=== PATIENT | female | born 1955 | race American Indian/Alaskan Native ===

== ENCOUNTER 2018-11-09 10:38 | Emergency (ER) | payer MEDICAID, MEDICARE ==
[2018-11-09] MEDS ORDERED: MORPHINE IV ONE (11:26)
[2018-11-09] MEDS ORDERED: ZOFRAN IV ONE (11:26)
[2018-11-09 11:42] LABS: Basophils # (Auto) 0.1 K/mm3 (0.0-0.1); Basophils % (Auto) 0.8 % (0.0-1.8); Eosinophils # (Auto) 0.2 K/mm3 (0.0-0.4); Eosinophils % (Auto) 1.9 % (0.0-4.3); Hematocrit 41.3 % (30.3-42.9); Hemoglobin 13.3 gm/dl (10.1-14.3); Lymphocytes # (Auto) 3.9 K/mm3 (1.2-5.4); Lymphocytes % (Auto) 34.6 % (13.4-35.0); Mean Corpuscular HGB Conc 32 % (30-34); Mean Corpuscular Volume 87 fl (79-97); Monocytes # (Auto) 0.4 K/mm3 (0.0-0.8); Monocytes % (Auto) 3.6 % (0.0-7.3); Platelet Count 282 K/mm3 (140-440); Red Blood Count 4.73 M/mm3 (3.65-5.03); Red Cell Distribution Width 14.7 % (13.2-15.2)
--- NOTE | 2018-11-09 11:42 | Emergency Department Report ---
ED General Adult HPI - General Chief complaint: Abdominal Pain Stated complaint: L FLANK PAIN Time Seen by Provider: 11/09/18 11:09 Source: patient, EMS Mode of arrival: Stretcher Limitations: No Limitations - History of Present Illness Initial comments: The patient presents to the emergency department with a chief complaint lower abdominal pain that started this morning. Patient describes the pain as sharp in nature and denies any radiation. Patient also complains of pain with urination. Patient denies chest pain, SOB, or headache. -: Sudden Location: abdomen Radiation: non-radiation Severity scale (0 -10): 7 Quality: sharp Consistency: constant Improves with: none Worsens with: none Associated Symptoms: denies other symptoms Treatments Prior to Arrival: none - Related Data Allergies Allergy/AdvReac Type Severity Reaction Status Date / Time ibuprofen [From Motrin] Allergy Rash Verified 11/09/18 11:03 ED Review of Systems ROS: Stated complaint: L FLANK PAIN Other details as noted in HPI Comment: All other systems reviewed and negative Constitutional: denies: chills, fever Eyes: denies: eye pain, eye discharge, vision change ENT: denies: ear pain, throat pain Respiratory: denies: cough, shortness of breath, wheezing Cardiovascular: denies: chest pain, palpitations Endocrine: no symptoms reported Gastrointestinal: abdominal pain. denies: nausea, diarrhea Genitourinary: denies: urgency, dysuria, discharge Musculoskeletal: denies: back pain, joint swelling, arthralgia Skin: denies: rash, lesions Neurological: denies: headache, weakness, paresthesias Psychiatric: denies: anxiety, depression Hematological/Lymphatic: denies: easy bleeding, easy bruising ED Past Medical Hx - Past Medical History Previous Medical History?: Yes Hx Hypertension: Yes Hx Diabetes: Yes Hx Arthritis: Yes Hx COPD: Yes - Social History Smoking Status: Current Every Day Smoker Substance Use Type: None ED Physical Exam - General Limitations: No Limitations General appearance: alert, in no apparent distress - Head Head exam: Present: atraumatic, normocephalic - Eye Eye exam: Present: normal appearance, PERRL, EOMI - ENT ENT exam: Present: mucous membranes moist - Neck Neck exam: Present: normal inspection - Respiratory Respiratory exam: Present: normal lung sounds bilaterally. Absent: respiratory distress - Cardiovascular Cardiovascular Exam: Present: regular rate, normal rhythm. Absent: systolic mu rmur, diastolic murmur, rubs, gallop - GI/Abdominal GI/Abdominal exam: Present: soft, tenderness (TTP lower left quadrant), normal bowel sounds. Absent: distended - Extremities Exam Extremities exam: Present: normal inspection - Back Exam Back exam: Present: normal inspection - Neurological Exam Neurological exam: Present: alert, oriented X3, CN II-XII intact. Absent: motor sensory deficit - Psychiatric Psychiatric exam: Present: normal affect, normal mood - Skin Skin exam: Present: warm, dry, intact, normal color. Absent: rash ED Course Vital Signs 11/09/18 11/09/18 11:09 11:26 Temperature 98.3 F Pulse Rate 58 L Respiratory 15 15 Rate Blood Pressure 151/77 [Left] O2 Sat by Pulse 97 Oximetry ED Medical Decision Making - Lab Data Result diagrams: 11/09/18 11:33 11/09/18 11:33 Lab Results 11/09/18 11/09/18 11/09/18 Range/Units 11:20 11:33 11:33 WBC 11.3 H (4.5-11.0) K/mm3 RBC 4.73 (3.65-5.03) M/mm3 Hgb 13.3 (10.1-14.3) gm/dl Hct 41.3 (30.3-42.9) % MCV 87 (79-97) fl MCH 28 (28-32) pg MCHC 32 (30-34) % RDW 14.7 (13.2-15.2) % Plt Count 282 (140-440) K/mm3 Lymph % (Auto) 34.6 (13.4-35.0) % [place] % (Auto) 3.6 (0.0-7.3) % Eos % (Auto) 1.9 (0.0-4.3) % Baso % (Auto) 0.8 (0.0-1.8) % Lymph # 3.9 (1.2-5.4) K/mm3 [place] # 0.4 (0.0-0.8) K/mm3 Eos # 0.2 (0.0-0.4) K/mm3 Baso # 0.1 (0.0-0.1) K/mm3 Seg Neutrophils % 59.1 (40.0-70.0) % Seg Neutrophils # 6.7 (1.8-7.7) K/mm3 PT 13.3 (12.2-14.9) Sec. INR 1.04 (0.87-1.13) APTT 23.6 L (24.2-36.6) Sec. Sodium (137-145) mmol/L Potassium (3.6-5.0) mmol/L Chloride (98-107) mmol/L Carbon Dioxide (22-30) mmol/L Anion Gap mmol/L BUN (7-17) mg/dL Creatinine (0.7-1.2) mg/dL Estimated GFR ml/min BUN/Creatinine Ratio % Glucose (65-100) mg/dL Calcium (8.4-10.2) mg/dL Total Bilirubin (0.1-1.2) mg/dL AST (5-40) units/L ALT (7-56) units/L Alkaline Phosphatase (35-129) units/L Total Protein (6.3-8.2) g/dL Albumin (3.9-5) g/dL Albumin/Globulin Ratio % Lipase (13-60) units/L Urine Color Yellow (Yellow) Urine Turbidity Slightly-cloudy (Clear) Urine pH 6.0 (5.0-7.0) Ur Specific [place] 1.020 (1.003-1.030) Urine Protein 30 mg/dl (Negative) mg/dL Urine Glucose (UA) Neg (Negative) mg/dL Urine Ketones Tr (Negative) mg/dL Urine Blood Neg (Negative) Urine Nitrite Neg (Negative) Urine Bilirubin Neg (Negative) Urine Urobilinogen 2.0 (<2.0) mg/dL Ur Leukocyte Esterase Sm (Negative) Urine WBC (Auto) 11.0 H (0.0-6.0) /HPF Urine RBC (Auto) 3.0 (0.0-6.0) /HPF U Epithel Cells (Auto) 4.0 (0-13.0) /HPF Urine Mucus 2+ /HPF 11/09/18 Range/Units 11:33 WBC (4.5-11.0) K/mm3 RBC (3.65-5.03) M/mm3 Hgb (10.1-14.3) gm/dl Hct (30.3-42.9) % MCV (79-97) fl MCH (28-32) pg MCHC (30-34) % RDW (13.2-15.2) % Plt Count (140-440) K/mm3 Lymph % (Auto) (13.4-35.0) % [place] % (Auto) (0.0-7.3) % Eos % (Auto) (0.0-4.3) % Baso % (Auto) (0.0-1.8) % Lymph # (1.2-5.4) K/mm3 [place] # (0.0-0.8) K/mm3 Eos # (0.0-0.4) K/mm3 Baso # (0.0-0.1) K/mm3 Seg Neutrophils % (40.0-70.0) % Seg Neutrophils # (1.8-7.7) K/mm3 PT (12.2-14.9) Sec. INR (0.87-1.13) APTT (24.2-36.6) Sec. Sodium 142 (137-145) mmol/L Potassium 3.3 L (3.6-5.0) mmol/L Chloride 110.3 H (98-107) mmol/L Carbon Dioxide 23 (22-30) mmol/L Anion Gap 12 mmol/L BUN 8 (7-17) mg/dL Creatinine 0.8 (0.7-1.2) mg/dL Estimated GFR > 60 ml/min BUN/Creatinine Ratio 10 % Glucose 96 (65-100) mg/dL Calcium 7.6 L (8.4-10.2) mg/dL Total Bilirubin 0.20 (0.1-1.2) mg/dL AST 13 (5-40) units/L ALT 7 (7-56) units/L Alkaline Phosphatase 85 (35-129) units/L Total Protein 6.0 L (6.3-8.2) g/dL Albumin 3.2 L (3.9-5) g/dL Albumin/Globulin Ratio 1.1 % Lipase 58 (13-60) units/L Urine Color (Yellow) Urine Turbidity (Clear) Urine pH (5.0-7.0) Ur Specific [place] (1.003-1.030) Urine Protein (Negative) mg/dL Urine Glucose (UA) (Negative) mg/dL Urine Ketones (Negative) mg/dL Urine Blood (Negative) Urine Nitrite (Negative) Urine Bilirubin (Negative) Urine Urobilinogen (<2.0) mg/dL Ur Leukocyte Esterase (Negative) Urine WBC (Auto) (0.0-6.0) /HPF Urine RBC (Auto) (0.0-6.0) /HPF U Epithel Cells (Auto) (0-13.0) /HPF Urine Mucus /HPF - Radiology Data Radiology results: report reviewed - Medical Decision Making Discussed results with patient Critical care attestation.: If time is entered above; I have spent that time in minutes in the direct care of this critically ill patient, excluding procedure time. ED Disposition Clinical Impression: Abdominal pain, UTI (urinary tract infection) Disposition: TO HOME OR SELFCARE Is pt being admited?: No Does the pt Need Aspirin: No Condition: Stable Instructions: Abdominal Pain (ED), Urinary Tract Infection in Women (ED) Additional Instructions: return if worse Referrals: [facility]IMARY CARE,MD [Primary Care Provider] - 3-5 Days [facility] [Provider Group] - 3-5 Days [facility] [Provider Group] - 3-5 Days Time of Disposition: 14:00
[2018-11-09 11:44] LABS: Bilirubin,Urine NEG (Negative); Blood,Urine NEG (Negative); Color,Urine Yellow (Yellow); Mucus,Urine 2+ /HPF
[2018-11-09 11:56] LABS: Alanine Aminotransferase 7 units/L (7-56); Albumin 3.2 g/dL (3.9-5); BUN/Creatinine Ratio 10; Blood Urea Nitrogen 8 mg/dL (7-17); Calcium 7.6 mg/dL (8.4-10.2); Hemolysis Index 43; INR 1.04 (0.87-1.13); Partial Thromboplastin Time 23.6 Sec. (24.2-36.6)
--- NOTE | 2018-11-09 13:34 | Cat Scan Report ---
CT ABDOMEN AND PELVIS WITH CONTRAST HISTORY: abdominal pain COMPARISON: None. TECHNIQUE: Axial CT images were obtained through the abdomen and pelvis after 100 cc of Omnipaque 300 intravenously. Sagittal and coronal reformatted images. All CT scans at this location are performed using CT dose reduction for ALARA by means of automated exposure control. FINDINGS: CT ABDOMEN: Lung Bases: Clear. Liver: No significant abnormality. Biliary: No significant abnormality. Spleen: No significant abnormality. Unenlarged. Pancreas: No significant abnormality. Adrenals: A 2 cm intermediate density left adrenal nodule is identified. The right adrenal gland is n ormal. Kidneys: The right kidney is within normal limits. The left kidney is atrophic measuring 7 cm in jacob th with multifocal cortical scarring. No focal renal lesion or hydronephrosis. The ureters are normal course and caliber. Lymphatics: No lymphadenopathy. Vasculature: No significant abnormality. Bowel/Peritoneum: No significant abnormality. No free air. No free fluid. Normal appendix. CT PELVIS: : The uterus is normal size and contour. There is a 1 cm focus of enhancement or hyperdensity withi n the endometrial canal near the uterine fundus. This could represent blood products or possibly a sm all endometrial polyp. The bladder and distal ureters are unremarkable Osseous Structures: No significant abnormality. Additional Findings: None IMPRESSION: No acute inflammatory process is identified. Indeterminate left adrenal nodule which probably represents an adrenal adenoma. Atrophic left kidney with multifocal scarring. Endometrial polyp Signer Name: Elvis Lobato Jr, MD Signed: 11/09/2018 1:29 PM Workstation Name: [id number]
[2018-11-09 14:26] VITALS: BP 150/80
== END 2018-11-09 14:30 | disposition home or self-care (01) ==
LOC: ED 10:38
DX: N39.0 Urinary tract infection, site not specified (principal); I10 Essential (primary) hypertension; E11.9 Type 2 diabetes mellitus without complications; M19.90 Unspecified osteoarthritis, unspecified site; J44.9 Chronic obstructive pulmonary disease, unspecified; F17.200 Nicotine dependence, unspecified, uncomplicated; Z88.6 Allergy status to analgesic agent
CPT/HCPCS: 36415; 74177; 80053; 81001; 82962; 83690; 85025; 85610; 85730; 87086; 96374; 96375; 99285; J2270; J2405; Q9967

== ENCOUNTER 2018-11-16 06:17 | Emergency (ER) | payer MEDICAID ==
[2018-11-16 06:55] LABS: Bilirubin,Urine NEG (Negative); Blood,Urine NEG (Negative); Color,Urine Yellow (Yellow); Mucus,Urine 1+ /HPF
--- NOTE | 2018-11-16 07:37 | Emergency Department Report ---
ED Female HPI - General Chief complaint: Urogenital-Female Stated complaint: BACK PAIN X 3 WKS Time Seen by Provider: 11/16/18 06:54 Source: patient Mode of arrival: Ambulatory Limitations: No Limitations - History of Present Illness Initial comments: Patient is a 63-year-old female presents emergency room complaints of dysuria that began 1 week ago. Has associated urinary frequency, vaginal discharge that she describes as mucus, lower back pain. She was diagnosed with a UTI on 11/09/18 and completed a course of Bactrim but does not feel as though her symptoms have improved much. She denies any fever, vomiting, diarrhea, any other symptoms. pt has not seen an [facility] approximately 2-3 years. She has a past medical history of diabetes, hypertension, COPD. States she has an allergy to Motrin. pt states she is not sexually active and denies any concern for STD. - Related Data Previous Rx's Medication Instructions Recorded Last Taken Type ALBUTEROL Inhaler (OR & NICU) 2 puff IH Q4HR PRN #1 inhalation 11/09/18 Unknown Rx [ProAir HFA Inhaler] Sulfamethoxazole/Trimethoprim 1 each PO BID #14 tablet 11/09/18 Unknown Rx [Bactrim DS TAB] traMADol [Ultram] 50 mg PO Q6HR PRN #24 tablet 11/09/18 Unknown Rx Acetaminophen [Acetaminophen ER] 650 mg PO Q8HR PRN #14 tablet.er 11/16/18 Unknown Rx Baclofen [Lioresal] 5 mg PO QHS PRN #10 tab 11/16/18 Unknown Rx Phenazopyridine [Pyridium] 200 mg PO BID PRN #10 tab 11/16/18 Unknown Rx cephALEXin [Keflex] 500 mg PO BID 7 Days #14 cap 11/16/18 Unknown Rx Allergies Allergy/AdvReac Type Severity Reaction Status Date / Time ibuprofen [From Motrin] Allergy Rash Verified 11/09/18 11:03 ED Review of Systems ROS: Stated complaint: BACK PAIN X 3 WKS Other details as noted in HPI Comment: All other systems reviewed and negative ED Past Medical Hx - Past Medical History Previous Medical History?: Yes Hx Hypertension: Yes Hx Diabetes: Yes Hx Arthritis: Yes Hx COPD: Yes - Surgical History Past Surgical History?: No - Social History Smoking Status: Current Every Day Smoker Substance Use Type: None - Medications Home Medications: Home Medications Medication Instructions Recorded Confirmed Last Taken Type ALBUTEROL Inhaler (OR & NICU) 2 puff IH Q4HR PRN #1 inhalation 11/09/18 Unknown Rx [ProAir HFA Inhaler] Sulfamethoxazole/Trimethoprim 1 each PO BID #14 tablet 11/09/18 Unknown Rx [Bactrim DS TAB] traMADol [Ultram] 50 mg PO Q6HR PRN #24 tablet 11/09/18 Unknown Rx Acetaminophen [Acetaminophen ER] 650 mg PO Q8HR PRN #14 tablet.er 11/16/18 Unknown Rx Baclofen [Lioresal] 5 mg PO QHS PRN #10 tab 11/16/18 Unknown Rx Phenazopyridine [Pyridium] 200 mg PO BID PRN #10 tab 11/16/18 Unknown Rx cephALEXin [Keflex] 500 mg PO BID 7 Days #14 cap 11/16/18 Unknown Rx ED Physical Exam - General Limitations: No Limitations General appearance: alert, in no apparent distress - Head Head exam: Present: atraumatic, normocephalic - Eye Eye exam: Present: normal appearance - ENT ENT exam: Present: mucous membranes moist - Respiratory Respiratory exam: Present: normal lung sounds bilaterally. Absent: respiratory distress, wheezes, rales, rhonchi, stridor, chest wall tenderness, accessory muscle use, decreased breath sounds, prolonged expiratory - Cardiovascular Cardiovascular Exam: Present: regular rate, normal rhythm, normal heart sounds. Absent: systolic murmur, diastolic murmur, rubs, gallop - GI/Abdominal GI/Abdominal exam: Present: soft, normal bowel sounds. Absent: distended, tenderness, guarding, rebound, rigid - External exam: Present: normal external exam. Absent: erythema, swelling, lesions, lacerations, ecchymosis, bleeding Speculum exam: Present: other (thin, atrophic vaginal victoria, edgerman: JACQUELINE burrell). Absent: erythema, vaginal discharge, cervical discharge, vaginal bleeding, foreign body, laceration Bi-manual exam: Present: adnexal tenderness (right sided ). Absent: cervical motion tendernes, adnexal mass - Back Exam Back exam: Absent: CVA tenderness (R), CVA tenderness (L) - Neurological Exam Neurological exam: Present: alert, oriented X3 - Psychiatric Psychiatric exam: Present: normal affect, normal mood - Skin Skin exam: Present: warm, dry, intact ED Course Vital Signs 11/16/18 11/16/18 11/16/18 06:27 07:47 09:51 Temperature 97.7 F Pulse Rate 91 H 86 84 Respiratory 16 16 16 Rate Blood Pressure 99/81 Blood Pressure 106/90 107/86 [Right] O2 Sat by Pulse 98 99 99 Oximetry ED Medical Decision Making - Lab Data Lab Results 11/16/18 Range/Units Unknown Urine Color Yellow (Yellow) Urine Turbidity Cloudy (Clear) Urine pH 5.0 (5.0-7.0) Ur Specific [place] 1.021 (1.003-1.030) Urine Protein 30 mg/dl (Negative) mg/dL Urine Glucose (UA) Neg (Negative) mg/dL Urine Ketones Neg (Negative) mg/dL Urine Blood Neg (Negative) Urine Nitrite Neg (Negative) Urine Bilirubin Neg (Negative) Urine Urobilinogen 4.0 (<2.0) mg/dL Ur Leukocyte Esterase Sm (Negative) Urine WBC (Auto) 29.0 H (0.0-6.0) /HPF Urine RBC (Auto) 5.0 (0.0-6.0) /HPF U Epithel Cells (Auto) 25.0 H (0-13.0) /HPF Urine Mucus 1+ /HPF - Radiology Data Radiology results: report reviewed ULTRASOUND PELVIC COMPLETE ULTRASOUND TRANSVAGINAL HISTORY: Right-sided pelvic pain and discomfort for 3 weeks TECHNIQUE: Transabdominal and transvaginal ultrasound images with color Doppler interrogation. COMPARISON: CT abdomen pelvis with contrast dated 11/09/2018. FINDINGS: The uterus is anteverted. The uterus measures 7.2 x 2.4 x 4.1 cm. A 1 cm partially calcified uterine fibroid is identified in the anterior wall. This appears to represent the calcified structu re seen on recent CT. There is also a 5 mm partially calcified subserosal fibroid in the uterine fundus. The endometrium measures 7.5 mm in thickness. The right ovary measures 1.4 x 0.6 x 0.7 cm. The left ovary measures 1.3 x 0.4 x 0.8 cm. No adnexal cyst or mass. No pelvic fluid collection. IMPRESSION: Mild uterine fibroid disease as described. No adnexal abnormality identified. Signer Name: Elvis Lobato Jr, MD Signed: 11/16/2018 9:05 AM Workstation Name: [id number] Transcribed By: TTR Dictated By: ELVIS LOBATO JR, MD Electronically Authenticated By: ELVIS LOBATO JR, MD Signed Date/Time: 11/16/18 0905 - Medical Decision Making Patient is a 63-year-old female presents emergency room complaints of dysuria that began 1 week ago. Has associated urinary frequency, vaginal discharge that she describes as mucus, lower back pain. She was diagnosed with a UTI on 11/09/18 and completed a course of Bactrim but does not feel as though her symptoms have improved much. She denies any fever, vomiting, diarrhea, any other symptoms. pt has not seen an [facility] approximately 2-3 years. She has a past medical history of diabetes, hypertension, COPD. States she has an allergy to Motrin. pt states she is not sexually active and denies any concern for STD. VSS. on exam: no abd tenderness, no peritoneal signs, abd is soft, normal bowel sounds, no CVAT, pelvic examination: mild right sided adnexal tenderness, no discharge present, appears to have atrophic, thin vaginal victoria, edgerman: JACQUELINE burrell. UA has WBCs and leukocyte esterase, also many epithelial cells, could be due to contamination but due to pt being symptomatic will tx pt with keflex this time. upon chart review pt had stable labs and no acute findings on her CT abd/pelvis during her ER visit on 11/09/18. pelvic and transvaginal US performed due to adnexal discomfort which shows: Mild uterine fibroid disease as described.No adnexal abnormality identified. will have pt follow up with [facility] due to fibroids and atrophic vaginitis findings. pt given prescription for tylenol, keflex, baclofen, and pyridium. advised pt to please take medication as prescribed to completion. do not drive or operate heavy machinery while taking muscle relaxer. may use heating pad, ice packs. drink plenty of water. Follow up with an [facility] in the next 2-3 days. return to the emergency room for any new or worsening symptoms - Differential Diagnosis UTI, TOA, vaginitis, fibroids, uterine/ovarian abnormality Critical care attestation.: If time is entered above; I have spent that time in minutes in the direct care of this critically ill patient, excluding procedure time. ED Disposition Clinical Impression: Dysuria, Atrophic vaginitis UTI (urinary tract infection) Qualifiers: Urinary tract infection type: acute cystitis Hematuria presence: without hematuria Qualified Code(s): N30.00 - Acute cystitis without hematuria Low back pain Qualifiers: Chronicity: acute Back pain laterality: bilateral Sciatica presence: without sciatica Qualified Code(s): M54.5 - Low back pain Uterine fibroid Qualifiers: Uterine leiomyoma location: unspecified location Qualified Code(s): D25.9 - Leiomyoma of uterus, unspecified Disposition: TO HOME OR SELFCARE Is pt being admited?: No Does the pt Need Aspirin: No Condition: Stable Instructions: Uterine Fibroids (ED), Urinary Tract Infection in Women (ED) Additional Instructions: Please take medication as prescribed to completion. do not drive or operate heavy machinery while taking muscle relaxer. may use heating pad, ice packs. drink plenty of water. Follow up with an [facility] in the next 2-3 days. return to the emergency room for any new or worsening symptoms. Prescriptions: Baclofen [Lioresal] 5 mg PO QHS PRN #10 tab PRN Reason: muscle spasms Acetaminophen [Acetaminophen ER] 650 mg PO Q8HR PRN #14 tablet.er PRN Reason: pain cephALEXin [Keflex] 500 mg PO BID 7 Days #14 cap Phenazopyridine [Pyridium] 200 mg PO BID PRN #10 tab PRN Reason: pain Referrals: [facility] [Provider Group] - 2-3 Days [facility] [Provider Group[facility] - 2-3 Days [facility] [Provider Group] - 2-3 Days Time of Disposition: 09:39 Print Language: DANISH
[2018-11-16] MEDS ORDERED: TORADOL IM ONE (07:56)
[2018-11-16] MEDS ORDERED: LIORESAL PO ONE (07:56)
--- NOTE | 2018-11-16 09:10 | Ultrasound Report ---
ULTRASOUND PELVIC COMPLETE ULTRASOUND TRANSVAGINAL HISTORY: Right-sided pelvic pain and discomfort for 3 weeks TECHNIQUE: Transabdominal and transvaginal ultrasound images with color Doppler interrogation. COMPARISON: CT abdomen pelvis with contrast dated 11/09/2018. FINDINGS: The uterus is anteverted. The uterus measures 7.2 x 2.4 x 4.1 cm. A 1 cm partially calcified uterine fibroid is identified in the anterior wall. This appears to represent the calcified structure seen on recent CT. There is also a 5 mm partially calcified subserosal fibroid in the uterine fundus. The endometrium measures 7.5 mm in thickness. The right ovary measures 1.4 x 0.6 x 0.7 cm. The left ovary measures 1.3 x 0.4 x 0.8 cm. No adnexal c yst or mass. No pelvic fluid collection. IMPRESSION: Mild uterine fibroid disease as described. No adnexal abnormality identified. Signer Name: Elvis Lobato Jr, MD Signed: 11/16/2018 9:05 AM Workstation Name: [id number]
[2018-11-16 09:53] VITALS: BP 107/86
== END 2018-11-16 09:51 | disposition home or self-care (01) ==
LOC: ED 06:17
DX: N95.2 Postmenopausal atrophic vaginitis (principal); D25.9 Leiomyoma of uterus, unspecified; N39.0 Urinary tract infection, site not specified; I10 Essential (primary) hypertension; E11.9 Type 2 diabetes mellitus without complications; M19.90 Unspecified osteoarthritis, unspecified site; J44.9 Chronic obstructive pulmonary disease, unspecified; F17.200 Nicotine dependence, unspecified, uncomplicated; Z88.6 Allergy status to analgesic agent; Z79.899 Other long term (current) drug therapy
CPT/HCPCS: 76830; 76856; 81001; 87086; 87210; 96372; 99284; J1885

== ENCOUNTER 2018-11-20 08:02 | Emergency (ER) | payer MEDICAID ==
[2018-11-20 08:39] VITALS: BP 118/83
--- NOTE | 2018-11-20 10:35 | Emergency Department Report ---
ED Rash HPI - HPI Chief Complaint: Skin Rash Stated Complaint: BED BUG BITES Time Seen by Provider: 11/20/18 09:31 Duration: 1 Day Location: Back, Upper Extremities, Lower Extremities Rash Symptoms: Yes Itching, No Facial Swelling, No Tongue/Oral Swelling, No Breathing Difficulties, No Choking Sensation, No Wheezing/Dyspnea, No Peeling, No Blistering, No Fever, No Lightheaded, No Malaise, No Myalgias Severity: mild Other History: This is a 63-year-old female nontoxic, well nourished in appearance, no acute signs of distress presents to the ED with c/o of rash and itching x1 day. Patient stated symptoms started after she was sleeping last night in [employer]. Patient also stated has some dysuria. Denies any flank pain. Denies any back pain. Denies any other urinary symptoms. Patient denies any drooling, hoarseness or facial swelling. Patient denies any trauma. She denies any fever, chills, nausea, vomiting, chest pain, shortness of breath, headache, stiff neck, numbness or tingling. ED Review of Systems ROS: Stated complaint: BED BUG BITES Other details as noted in HPI Constitutional: denies: chills, fever Eyes: denies: eye pain, eye discharge, vision change ENT: denies: ear pain, throat pain Respiratory: denies: cough, shortness of breath, wheezing Cardiovascular: denies: chest pain, palpitations Endocrine: no symptoms reported Gastrointestinal: denies: abdominal pain, nausea, diarrhea Genitourinary: denies: urgency, dysuria, discharge Musculoskeletal: denies: back pain, joint swelling, arthralgia Skin: rash. denies: lesions Neurological: denies: headache, weakness, paresthesias Psychiatric: denies: anxiety, depression Hematological/Lymphatic: denies: easy bleeding, easy bruising ED Past Medical Hx - Past Medical History Hx Hypertension: Yes Hx Diabetes: Yes Hx Arthritis: Yes Hx COPD: Yes - Surgical History Past Surgical History?: Yes Additional Surgical History: x 1. surgery to right ear - Social History Smoking Status: Current Every Day Smoker Substance Use Type: None - Medications Home Medications: Home Medications Medication Instructions Recorded Confirmed Last Taken Type ALBUTEROL Inhaler (OR & NICU) 2 puff IH Q4HR PRN #1 inhalation 11/09/18 Unknown Rx [ProAir HFA Inhaler] Sulfamethoxazole/Trimethoprim 1 each PO BID #14 tablet 11/09/18 Unknown Rx [Bactrim DS TAB] traMADol [Ultram] 50 mg PO Q6HR PRN #24 tablet 11/09/18 Unknown Rx Acetaminophen [Acetaminophen ER] 650 mg PO Q8HR PRN #14 tablet.er 11/16/18 Unknown Rx Baclofen [Lioresal] 5 mg PO QHS PRN #10 tab 11/16/18 Unknown Rx Phenazopyridine [Pyridium] 200 mg PO BID PRN #10 tab 11/16/18 Unknown Rx cephALEXin [Keflex] 500 mg PO BID 7 Days #14 cap 11/16/18 Unknown Rx Sulfamethoxazole/Trimethoprim 1 each PO BID #14 tablet 11/20/18 Unknown Rx [Bactrim DS TAB] Triamcinolone 0.1% [Kenalog 0.1% 1 applic TP TID #1 tube 11/20/18 Unknown Rx CREAM] diphenhydrAMINE [Benadryl CAP] 25 mg PO Q8HR PRN #12 capsule 11/20/18 Unknown Rx Rash Exam - Exam General: Vital signs noted. No distress. Alert and acting appropriately. no CVA tenderness. HEENT: No Periorbital Edema, No Conjuctival Injection, No Chemosis, No Perioral Edema, No Tongue Edema, No Uvular Edema, No Compromised Airway, No Drooling Lungs: Yes Good Air Exchange (Normal Breath Sounds), No Wheezes, No Ronchi, No Stridor, No Cough, No Labored Respirations, No Retractions, No Use of Accessory Muscles, No Other Abnormal Lung Sounds Heart: Yes Regular, No Murmur Skin: Yes Other (Multiple erythematous papules with central hemorrhagic punctum), No Urticarial Rash, No Maculopapular Rash, No Morbilliform rash, No Bulla(e), No Excoriations, No Weeping, No Tenderness, No Erythema, No Edema, No Encrustations Other: Positive: Abdomen Normal, Neurologic Normal, Musculoskeletal Normal ED Course Vital Signs 11/20/18 08:38 Temperature 97.7 F Pulse Rate 84 Respiratory 20 Rate Blood Pressure 118/83 [Right] O2 Sat by Pulse 99 Oximetry - Reevaluation(s) Reevaluation #1: 11/20/18 10:35 Patient is speaking in full sentences with no signs of distress noted. ED Medical Decision Making - Medical Decision Making This is a 63-year-old female that presents with bedbugs and UTI. Patient is stable and was examined by me. Patient has been educated on prevention and treatment of bedbugs at home. Patient be discharged with Benadryl and Kenalog. Patient was instructed to Follow-up with a primary care doctor in 3-5 days or if symptoms worsen and continue return to emergency room as soon as possible. At time of discharge, the patient does not seem toxic or ill in appearance. No acute signs of distress noted. Patient agrees to discharge treatment plan of care. No further questions noted by the patient. Critical care attestation.: If time is entered above; I have spent that time in minutes in the direct care of this critically ill patient, excluding procedure time. ED Disposition Clinical Impression: Bed bug bite Qualifiers: Encounter type: initial encounter Qualified Code(s): W57.XXXA - Bitten or stung by nonvenomous insect and other nonvenomous arthropods, initial encounter UTI (urinary tract infection) Qualifiers: Urinary tract infection type: acute cystitis Hematuria presence: without hematuria Qualified Code(s): N30.00 - Acute cystitis without hematuria Disposition: - TO HOME OR SELFCARE Is pt being admited?: No Does the pt Need Aspirin: No Condition: Stable Instructions: Urinary Tract Infection in Women (ED), Diphenhydramine (By mouth) Additional Instructions: Follow-up with a primary care doctor in 3-5 days or if symptoms worsen and continue return to emergency room as soon as possible. Prescriptions: Sulfamethoxazole/Trimethoprim [Bactrim DS TAB] 1 each PO BID #14 tablet diphenhydrAMINE [Benadryl CAP] 25 mg PO Q8HR PRN #12 capsule PRN Reason: Itching Triamcinolone 0.1% [Kenalog 0.1% CREAM] 1 applic TP TID #1 tube Referrals: PRIMARY CARE, [Primary Care Provider] - 3-5 Days FRACISCO LING MD [Staff Physician] - 3-5 Days [facility] [Outside] - 3-5 Days [facility] [Outside] - 3-5 Days
[2018-11-20 10:46] LABS: Bacteria,Urine 1+ /HPF (Negative); Bilirubin,Urine NEG (Negative); Blood,Urine NEG (Negative); Color,Urine Yellow (Yellow); Mucus,Urine FEW /HPF; Urobilinogen,Urine < 2.0 mg/dL (<2.0)
== END 2018-11-20 11:28 | disposition home or self-care (01) ==
LOC: ED 08:02
DX: T14.8XXA Other injury of unspecified body region, initial encounter (principal); N39.0 Urinary tract infection, site not specified; I10 Essential (primary) hypertension; E11.9 Type 2 diabetes mellitus without complications; J44.9 Chronic obstructive pulmonary disease, unspecified; M19.90 Unspecified osteoarthritis, unspecified site; F17.200 Nicotine dependence, unspecified, uncomplicated; Z79.899 Other long term (current) drug therapy; Z88.5 Allergy status to narcotic agent; W57.XXXA Bitten or stung by nonvenomous insect and other nonvenomous arthropods, initial encounter; Y93.89 Activity, other specified; Y92.89 Other specified places as the place of occurrence of the external cause; Y99.8 Other external cause status
CPT/HCPCS: 81001; 87086; 99283

== ENCOUNTER 2021-11-22 12:19 | Emergency (ER) | payer MEDICARE, MEDICAID ==
[2021-11-22 13:04] VITALS: BP 201/110
[2021-11-22 13:42] LABS: Basophils # (Auto) 0.1 K/mm3 (0.0-0.1); Basophils % (Auto) 1.2 % (0.0-1.8); Eosinophils # (Auto) 0.2 K/mm3 (0.0-0.4); Eosinophils % (Auto) 2.6 % (0.0-4.3); Hematocrit 41.1 % (30.3-42.9); Hemoglobin 13.4 gm/dl (10.1-14.3); Lymphocytes % (Auto) 41.1 % (13.4-35.0); Mean Corpuscular HGB Conc 33 % (30-34); Mean Corpuscular Volume 87 fl (79-97); Monocytes # (Auto) 0.4 K/mm3 (0.0-0.8); Platelet Count 260 K/mm3 (140-440)
[2021-11-22 13:57] LABS: BUN/Creatinine Ratio 15; Blood Urea Nitrogen 15 mg/dL (7-17); Calcium 9.9 mg/dL (8.4-10.2); Hemolysis Index 11
== END 2021-11-22 20:00 | disposition left against medical advice (07) ==
LOC: ED 12:19
DX: Z13.30 Encounter for screening examination for mental health and behavioral disorders, unspecified (principal); Z53.21 Procedure and treatment not carried out due to patient leaving prior to being seen by health care provider
CPT/HCPCS: 36415; 80048; 80320; 85025; G0480